=== PATIENT | female | born 1950 | race Caucasian/White ===

== ENCOUNTER → 2016-12-30 | Outpatient (CLI) | payer OTHER | LOC: FIMAGING 10:26 | PROVIDERS: ATTEND Physical Medicine & Rehabilitation Neuromuscular Medicine | DX: Z47.89 Encounter for other orthopedic aftercare (principal); Z98.1 Arthrodesis status; M43.16 Spondylolisthesis, lumbar region ==

== ENCOUNTER → 2017-01-18 | Outpatient (CLI) | payer OTHER | LOC: FIMAGING 11:22 | PROVIDERS: ATTEND Physical Medicine & Rehabilitation Neuromuscular Medicine | DX: M48.06 Spinal stenosis, lumbar region (principal); M99.73 Connective tissue and disc stenosis of intervertebral foramina of lumbar region; M12.88 Other specific arthropathies, not elsewhere classified, other specified site; Z98.1 Arthrodesis status ==

== ENCOUNTER → 2017-02-13 | Outpatient (CLI) | payer OTHER | LOC: FIMAGING 16:03 | PROVIDERS: ATTEND Physician Assistant Surgical | DX: M50.31 Other cervical disc degeneration, high cervical region (principal); M50.321 Other cervical disc degeneration at C4-C5 level; M50.322 Other cervical disc degeneration at C5-C6 level ==

== ENCOUNTER 2017-04-13 05:22 | Inpatient (IN) | payer OTHER ==
[2017-04-13] MEDS ORDERED: DEXAMETHASONE 10 MG/ML VIAL IVP ONE (05:45)
[2017-04-13] MEDS ORDERED: VANCOMYCIN HCL/NORMAL SALINE 250 ML IV ONE ×2 (05:45→18:30)
[2017-04-13] MEDS ORDERED: GABAPENTIN 300 MG CAP PO ONE (05:45)
[2017-04-13] MEDS ORDERED: ACETAMINOPHEN 500 MG TAB PO ONE (05:45)
[2017-04-13] MEDS ORDERED: LR 1,000 ML IV ONE (05:46)
[2017-04-13] MEDS ORDERED: LIDOCAINE 1% 2 ML INJ ID PRN (05:46)
--- NOTE | 2017-04-13 06:16 | PDHPUP ---
History & Physical Update H&P update statement: This history and physical update is based on an assessment of the patient which was completed after admission or registration (within 24 hours), but prior to the surgery/procedure. H&P update: H&P reviewed & patient examined, no change in patient's condition since H&P completed
[2017-04-13] MEDS ORDERED: ACETAMINOPHEN 500 MG TAB ONE (06:27)
[2017-04-13] MEDS ORDERED: BUPIVACAINE 0.25% 30 ML SDV ONE (06:42)
[2017-04-13] MEDS ORDERED: THROMBIN (BOVINE) 5,000 UNIT VIAL TP ONE ×2 (06:42→08:54)
[2017-04-13] MEDS ORDERED: BACITRACIN 50,000 UNITS/10 ML SYR IRR ONE (06:42)
[2017-04-13] MEDS ORDERED: CHLORHEXIDINE GLUC HIBICLENS 118 ML BTL TP ONE (06:42)
--- NOTE | 2017-04-13 07:01 | PDANEPAE ---
ANE History of Present Illness ACDF 3-6 ANE Past Medical History - Cardiovascular History Hx Hypertension: Yes Hx Arrhythmias: No Hx Chest Pain: No Hx Coronary Artery / Peripheral Vascular Disease: No Hx CHF / Valvular Disease: No Hx Palpitations: No Cardiovascular History Comment: INFREQUENT PVC'S - Pulmonary History Hx COPD: No Hx Asthma/Reactive Airway Disease: Yes Hx Recent Upper Respiratory Infection: No Hx Oxygen in Use at Home: No Hx Sleep Apnea: Yes Sleep Apnea Screening Result - Last Documented: Positive Pulmonary History Comment: ASTHMA SEASONAL TRIGGERS HAS PRN INHALER. MANUELA USES C -PAP. PE 05/2013 - Neurologic History Hx Cerebrovascular Accident: Yes Hx Seizures: No Neurologic History Comment: 01/2010 NO RESIDUAL EFFECT - Endocrine History Hx Diabetes: No - Renal History Hx Renal Disorders: No - Liver History Hx Hepatic Disorders: No - Neurological & Psychiatric Hx Hx Neurological and Psychiatric Disorders: Yes Neurological / Psychiatric History Comment: BIPOLAR. DEPRESSION - Cancer History Hx Cancer: No - Congenital Disorder History Hx Congenital Disorders: No - GI History Hx Gastrointestinal Disorders: Yes Gastrointestinal History Comment: GERD. COLONOSCOPY - Other Health History Other Health History: HAS SM INTESTINE POLYP. DJD - Chronic Pain History Chronic Pain: Yes (CERVICAL) - Surgical History Prior Surgeries: LUMBAR FUSION X2 2009 &2010. LT FOOT BUNIONECTOMY. LT CARPAL TUNNEL. BREAST BX. LAMINECTOMY 2001. HYSTERECTOMY/BLADDER SUSPENSION. PRECIOUS CATARACT/GLAUCOMA ECP 2010 ANE Review of Systems Review of systems is: negative - Exercise capacity Exercise capacity: >=4 METS METS (RN): 4 METS ANE Patient History - Allergies Allergies/Adverse Reactions: Cephalosporins Allergy (Severe, Verified 07/08/11 16:08) Rash Sulfa (Sulfonamide Antibiotics) Allergy (Severe, Verified 07/08/11 16:08) Hives alcohol [From Mastisol Adhesive] Allergy (Verified 04/06/17 11:01) gabapentin Allergy (Verified 04/06/17 11:00) HYPOMANIA gum mastic [From Mastisol Adhesive] Allergy (Verified 04/06/17 11:01) methyl salicylate [From Mastisol Adhesive] Allergy (Verified 04/06/17 11:01) morphine Allergy (Verified 04/06/17 10:59) Rash storax [From Mastisol Adhesive] Allergy (Verified 04/06/17 11:01) STERI STRIPS Allergy (Intermediate, Uncoded 07/08/11 16:09) MASTISOL ADHESIVES BLISTER, RASH - Home Medications Home Medications: ARIPiprazole [Abilify] 15 mg PO HS 04/06/17 [Last Taken 04/12/17 18:00] Calcium Carbonate/Vitamin D3 [CALCIUM 600 + VIT D TABLET] 1 each PO DAILY [Last Taken 04/06/17] Cholecalciferol Vit D3 [Vitamin D3 2000 units tab (OTC)] 2,000 units PO MWF [Last Taken 04/06/17] Levalbuterol Inhaler [Xopenex Hfa Inhaler (*)] 1 puffs IH BID PRN 04/06/17 [ Last Taken 02/16/17] Lisinopril/Hctz 10/12.5 mg [Zestoretic/Prinzide 10/12.5MG (*)] 1 ea PO DAILY [Last Taken 04/12/17 07:00] Methylphenidate HCl [Ritalin 20mg (*)] 20 mg PO BID 04/06/17 [Last Taken ] Prilosec Otc PRN 04/06/17 [Last Taken Unknown] Simvastatin [Zocor] 20 mg PO 04/06/17 [Last Taken 04/12/17] Tiotropium Br/Olodaterol HCl [Stiolto Respimat Inhal [place]] 1 puffs IH DAILY PRN 04/06/17 [Last Taken 02/16/17] Vitamin B Complex [B Complex] 1 each PO [facility] 04/06/17 [Last Taken Unknown] lamoTRIgine [LamICTAL 100 MG (*)] 300 mg PO 04/06/17 [Last Taken 04/12/17 07: 00] - NPO status NPO Status: no food or drink >8 hours NPO Since - Liquids (Date): 04/12/17 NPO Since - Liquids (Time): 22:00 NPO Since - Solids (Date): 04/12/17 NPO Since - Solids (Time): 18:00 - Anes Hx Anes Hx: no prior problems - Smoking Hx Smoking Status: Former smoker - Alcohol Use Alcohol Use: Rarely ANE Labs/Vital Signs - Vital Signs Blood Pressure: 125/73 Heart Rate: 67 Respiratory Rate: 20 O2 Sat (%): 98 Height: 153.67 cm Weight: 67.132 kg ANE Physical Exam - Airway Neck exam: FROM Mallampati Score: Class 1 Mouth exam: normal dental/mouth exam - Pulmonary Pulmonary: no respiratory distress - Cardiovascular Cardiovascular: regular rate and rhythym - ASA Status ASA Status: III ANE Anesthesia Plan Anesthesia Plan: general endotracheal anesthesia
[2017-04-13] MEDS ORDERED: fentaNYL 100 MCG/2 ML INJ ONE ×2 (07:06→10:04)
[2017-04-13] MEDS ORDERED: LIDOCAINE 2% 5 ML SDV ONE (07:06)
[2017-04-13] MEDS ORDERED: PROPOFOL 200 MG/20 ML VIAL ONE (07:07)
[2017-04-13] MEDS ORDERED: PROPOFOL/EMULSION 500 MG/50 ML BOTTLE IV ONE (07:07)
[2017-04-13] MEDS ORDERED: REMIFENTANIL HCL 1 MG VIAL ONE (07:07)
[2017-04-13] MEDS ORDERED: KETAMINE 100 MG/10 ML SYR ONE (07:14)
[2017-04-13] MEDS ORDERED: HYDROmorphONE/DILAUDID 2 MG/ML INJ ONE (09:21)
[2017-04-13] MEDS ORDERED: ONDANSETRON 4 MG/2 ML VIAL ONE (09:24)
[2017-04-13] MEDS ORDERED: LEVALBUTEROL INHALER 200 PUFFS/15 GM MDI IH PRN (09:49)
[2017-04-13] MEDS ORDERED: NON-FORMULARY NEW DRUG (Omeprazole [Prilosec 20 Mg] 20 MG) PO PRN (09:49)
[2017-04-13] MEDS ORDERED: OLODATEROL HCL IH PRN (09:49)
[2017-04-13] MEDS ORDERED: TIOTROPIUM BR IH PRN (09:49)
[2017-04-13] MEDS ORDERED: ONDANSETRON 4 MG/2 ML VIAL IVP PRN ×2 (09:51→09:57)
[2017-04-13] MEDS ORDERED: diphenhydrAMINE 25 MG CAP PO PRN (09:51)
[2017-04-13] MEDS ORDERED: BISACODYL 10 MG SUPP PR PRN (09:51)
[2017-04-13] MEDS ORDERED: MAGNESIUM HYDROXIDE 30 ML UDCUP PO PRN (09:51)
[2017-04-13] MEDS ORDERED: LACTULOSE 20 GM/30 ML UDCUP PO PRN (09:51)
[2017-04-13] MEDS ORDERED: HYDROmorphONE/DILAUDID 1 MG/ML SYR IVP PRN ×2 (09:57→09:59)
[2017-04-13] MEDS ORDERED: NALOXONE HCL 0.4 MG/ML INJ IVP PRN (09:57)
[2017-04-13] MEDS ORDERED: PROMETHAZINE HCL 25 MG/ML INJ IVP PRN ×2 (09:57→15:19)
[2017-04-13] MEDS ORDERED: LABETALOL HCL 50 MG/10 ML SYR IVP PRN (09:57)
--- NOTE | 2017-04-13 09:57 | SOAPPROG ---
SOAP Progress Note Assessment/Plan: Assessment: 66 yo F sp C3-6 ACDF Plan: stable PT/OT hard collar for 6 weeks please call with neuro changes 04/13/17 09:56 Subjective: + neck pain, no arm pain. Objective: Vital Signs Temp Pulse Resp BP Pulse Ox 36.6 C 67 20 125/73 H 98 04/13/17 06:01 04/13/17 07:01 04/13/17 07:01 04/13/17 07:01 04/13/17 07:01 awake, alert PERRL no facial droop 5/5 + light touch ICD10 Worksheet Patient Problems: Problems Problem Status Onset Fusion of spine of cervical region Acute - ICD10 Problem Qualifiers (1) Fusion of spine of cervical region
[2017-04-13] MEDS ORDERED: DIAZEPAM 10 MG/2 ML SYR IVP PRN (09:58)
--- NOTE | 2017-04-13 10:00 | POSTANESTH ---
Post Anesthetic Evaluation Cardiovascular Status: Normal, Stable Respiratory Status: Normal, Stable Level of Consciousness/Mental Status: Can Participate in Eval Pain Control: Adequate, Prn Tx Ordered Nausea/Vomiting Control: Adequate, Prn Tx Ordered Complications Possibly Related to Anesthesia: None Noted
[2017-04-13] MEDS ORDERED: DIAZEPAM 10 MG/2 ML SYR ONE (10:04)
[2017-04-13] MEDS: fentaNYL 100 MCG/2 ML INJ IVP PRN ×2 (10:12→10:30)
[2017-04-13] MEDS ORDERED: HYDROmorphONE/DILAUDID 1 MG/ML SYR ONE (10:48)
[2017-04-13] MEDS ORDERED: PANTOPRAZOLE SODIUM 40 MG TAB PO PRN (11:40)
--- NOTE | 2017-04-13 11:41 | GOP ---
[f rep st] OPERATIVE REPORT DATE OF OPERATION: 04/13/2017 SURGEON: Barry Elliott MD [employer]ER: GALINA Knapp. ANESTHESIA: General endotracheal. 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 Multilevel severe neural foraminal encroachment. Intractabl e pain and myelopathy. Failed conservative care. POSTOPERATIVE DIAGNOSIS: Multilevel cervical degenerative joint disease and instability, with progr essive cervical spondylitic myelopathy. Multilevel severe neural foraminal encroachment. Intractab le pain and myelopathy. Failed conservative care. PROCEDURE PERFORMED: C3-4, C4-5, and C5-6 complete anterior cervical diskectomy and arthrodesis wit h 3 structural PEEK interbody spacers, local autograft, and demineralized bone matrix. Partial C4 a nd C5 vertebral corpectomies for decompression of spinal canal. Placement of a LnK CastleLoc-P ante rior cervical plate from C3 through C6. Use of intraoperative microscopy and fluoroscopy. FINDINGS: ESTIMATED BLOOD LOSS: 150 cc. INDICATIONS: The patient is a 66-year-old woman with intractable neck pain, headaches, Lhermitte si gn, cervical instability on flexion-extension views, and severe neural foraminal encroachment. She presents now for a multilevel surgical cervical decompression and stabilization. DESCRIPTION OF PROCEDURE: After informed consent was obtained, the patient was taken to the operati ng room and placed in the supine position with the head in the halter retractor system. The anterio r cervical region was prepped and draped in a sterile fashion. After fluoroscopic localization of c orrect levels, the subcutaneous and intramuscular tissues were infiltrated with local anesthesia. A horizontal linear incision was then created at the level of the C4-5 interspace. This was carried through the platysmal layer using monopolar electrocautery and carried in the avascular plane betwee n the sternocleidomastoid and carotid sheath laterally and the strap muscles, trachea, and esophagus medially, down to the prevertebral fascia, which was carefully incised with Metzenbaum scissors. T he C3-4, C4-5, and C5-6 interspaces were identified and re-verified using intraoperative fluoroscopy . The large osteophytes were carefully removed and harvested for local autograft. The distraction pins were then serially inserted and a slight amount of distraction created across each interspace, during which time complete diskectomies were performed at C3-4, C4-5, and C5-6, with preparation of the endplates and removal of the posterior longitudinal ligament at each level. There were large po steriorly protruding osteophytes that required an extensive amount of decompressing including drilli ng and use of the Kerrison rongeurs. Because the superior and inferior endplates of C4 and C5 were extensively decompressed and drilled, it was necessary to remove approximately 50% of those vertebra l bodies for partial C4 and C5 vertebral corpectomies in order to adequately decompress the canal an d neural foramen. The patient was somewhat oozy and it seemed like she was on aspirin or something because all of her tissues tended to bleed slightly more than normal. This was never dangerous or e xcessive, but took more time to obtain meticulous hemostasis, which was eventually done at each leve l. Following adequate decompression, the remaining endplates were carefully prepared and appropriat sirisha-sized 10, 11, and 10 mm structural PEEK interbody spacers were packed with local autograft in [facility], along with demineralized bone matrix, and placed in the interspaces at the C3-4, C4-5, and C5-6 levels under fluoroscopic image guidance. The distraction was removed serially and an appropr iately sized LnK CastleLoc-P anterior cervical plate was then placed and secured from C3 through C6 with self-drilling screws. Following re-verification of good positioning of the plate screws and in terbody spacers using biplanar fluoroscopy, the locking mechanisms were engaged. A drain was placed . The subcutaneous and intramuscular tissues were re-infiltrated with local anesthesia and the woun d was closed in layered fashion using interrupted Vicryl sutures followed by Steri-Strips on the ski n. COMPLICATIONS: None. DISPOSITION: The patient was extubated and transported to the recovery room in stable condition. /[id number]/MODL
[2017-04-13] MEDS: NS 1,000 ML IV SCH (11:45)
[2017-04-13] MEDS: oxyCODONE IR 5 MG TAB PO PRN ×2 (11:45→19:44)
[2017-04-13] MEDS: ONDANSETRON DISINTEGRATING 4 MG TAB PO PRN (11:56)
[2017-04-13] MEDS: ACETAMINOPHEN 500 MG TAB PO SCH ×2 (15:34→21:26)
[2017-04-13] MEDS: POLYETHYLENE GLYCOL 3350 17 GM PKT PO SCH ×2 (15:35→21:26)
[2017-04-13] MEDS: ARIPiprazole 5 MG TAB PO SCH (19:45)
[2017-04-13] MEDS: FAMOTIDINE 20 MG TAB PO SCH (19:45)
[2017-04-13] MEDS: SENNOSIDES/DOCUSATE SODIUM TAB PO SCH (19:45)
[2017-04-13] MEDS: ATORVASTATIN CALCIUM 10 MG TAB PO SCH (19:46)
[2017-04-13] MEDS ORDERED: lamoTRIgine 100 MG TAB PO SCH (21:00)
[2017-04-13] MEDS ORDERED: NON-FORMULARY NEW DRUG (Simvastatin [Zocor] 20 MG) PO SCH (21:00)
[2017-04-13] MEDS ORDERED: ARIPIPRAZOLE 15 MG PO SCH (21:00)
[2017-04-13] MEDS: METHOCARBAMOL 750 MG TAB PO PRN (21:28)
[2017-04-14] MEDS: NS 1,000 ML IV SCH (00:06)
[2017-04-14] MEDS: oxyCODONE IR 5 MG TAB PO PRN ×5 (04:00→22:21)
[2017-04-14] MEDS: METHOCARBAMOL 750 MG TAB PO PRN ×4 (05:38→22:21)
[2017-04-14] MEDS: ACETAMINOPHEN 500 MG TAB PO SCH ×3 (05:38→22:21)
[2017-04-14] MEDS ORDERED: CHOLECALCIFEROL VIT D3 2,000 UNITS TAB/CAP PO SCH (08:00)
[2017-04-14] MEDS: POLYETHYLENE GLYCOL 3350 17 GM PKT PO SCH ×3 (08:35→22:21)
[2017-04-14] MEDS: SENNOSIDES/DOCUSATE SODIUM TAB PO SCH ×2 (08:35→20:32)
[2017-04-14] MEDS: FAMOTIDINE 20 MG TAB PO SCH ×2 (08:36→20:32)
[2017-04-14] MEDS: LISINOPRIL/HCTZ 10/12.5 MG 1 EA TAB PO SCH (08:37)
[2017-04-14] MEDS: CALCIUM CARB W/VIT D 500 MG TAB PO SCH ×2 (08:38→08:50)
[2017-04-14] MEDS: lamoTRIgine 100 MG TAB PO SCH (08:40)
--- NOTE | 2017-04-14 08:45 | SOAPPROG ---
SOAP Progress Note Assessment/Plan: Assessment: POD #1 sp C3-6 ACDF Doing ok. Expected post op dysphagia ARMSTRONG improved, left arm pain improved Plan: PT/OT/ST as tolerated soft diet Continue MYAH drain and hard collar Needs cervical xrays today . Subjective: awake, alert, doing ok this AM with resolution of ARMSTRONG since surgery. LEft arm feels better as well. Has expected dysphagia, tolerating yogurt this AM. Objective: Vital Signs Temp Pulse Resp BP Pulse Ox 37.0 C 82 18 127/84 H 99 04/14/17 04:00 04/14/17 04:00 04/14/17 04:00 04/14/17 08:37 04/14/17 04:00 04/13/17 04/14/17 04/15/17 05:59 05:59 05:59 Intake Total 718 Output Total 1345 Balance -627 Dressing: CDI MYAH: 95ml NEuro: AVILES, Sens +LT equal strength ICD10 Worksheet Patient Problems: Problems Problem Status Onset Fusion of spine of cervical region Acute
[2017-04-14] MEDS ORDERED: NON-FORMULARY NEW DRUG (Calcium Carbonate/Vitamin D3 [Calcium 600 + Vit D Tablet] 1 EACH) PO SCH (09:00)
[2017-04-14] MEDS: ONDANSETRON DISINTEGRATING 4 MG TAB PO PRN (13:28)
[2017-04-14] MEDS: ATORVASTATIN CALCIUM 10 MG TAB PO SCH (20:31)
[2017-04-14] MEDS: ARIPiprazole 5 MG TAB PO SCH (20:32)
[2017-04-15] MEDS: oxyCODONE IR 5 MG TAB PO PRN ×5 (04:16→21:40)
[2017-04-15] MEDS: METHOCARBAMOL 750 MG TAB PO PRN ×3 (04:16→21:40)
[2017-04-15] MEDS: ACETAMINOPHEN 500 MG TAB PO SCH ×3 (05:14→21:39)
[2017-04-15] MEDS: FAMOTIDINE 20 MG TAB PO SCH ×2 (07:53→21:40)
[2017-04-15] MEDS: lamoTRIgine 100 MG TAB PO SCH (07:53)
[2017-04-15] MEDS: SENNOSIDES/DOCUSATE SODIUM TAB PO SCH ×2 (07:53→21:40)
[2017-04-15] MEDS: CALCIUM CARB W/VIT D 500 MG TAB PO SCH (07:54)
[2017-04-15] MEDS: LISINOPRIL/HCTZ 10/12.5 MG 1 EA TAB PO SCH (07:54)
[2017-04-15] MEDS: POLYETHYLENE GLYCOL 3350 17 GM PKT PO SCH ×3 (07:54→21:39)
--- NOTE | 2017-04-15 08:51 | SOAPPROG ---
SOAP Progress Note Assessment/Plan: Assessment: POD #2 sp C3-6 ACDF Doing ok. Expected post op dysphagia left arm pain improved Plan: PT/OT/ST as tolerated soft diet, thick liquids hard collar d/c MYAH drain today post-op xrays show intact hardware with excellent alignment likely d/c home tomorrow if swallowing improved, patient concerned about being able to take pills 04/15/17 08:50 04/15/17 08:53 Subjective: c/o difficulty swallowing Objective: Vital Signs Temp Pulse Resp BP Pulse Ox 36.7 C 91 16 145/85 H 94 04/15/17 08:00 04/15/17 08:00 04/15/17 08:00 04/15/17 08:00 04/15/17 08:00 04/14/17 04/15/17 04/16/17 05:59 05:59 05:59 Intake Total 718 590 Output Total 7621 2635 Balance -627 -2044 AAOx3, full strength and sensation, voice somewhat hoarse/raspy, wounds c/d/i - Pending Discharge Pending Discharge Within 24 Hours: Yes Pending Discharge Within 48 Hours: Yes Pending Discharge Date: 04/16/17 Pending Discharge Time: 11:00 ICD10 Worksheet Patient Problems: Problems Problem Status Onset Fusion of spine of cervical region Acute
[2017-04-15] MEDS: ONDANSETRON DISINTEGRATING 4 MG TAB PO PRN (15:58)
[2017-04-15 16:27] VITALS: O2SAT 95
[2017-04-15] MEDS: ARIPiprazole 5 MG TAB PO SCH (21:39)
[2017-04-15] MEDS: ATORVASTATIN CALCIUM 10 MG TAB PO SCH (21:39)
[2017-04-15 22:22] VITALS: RESP 16; TEMP 98.2
[2017-04-16] MEDS: oxyCODONE IR 5 MG TAB PO PRN ×2 (05:10→09:00)
[2017-04-16] MEDS: METHOCARBAMOL 750 MG TAB PO PRN ×3 (05:11→13:34)
[2017-04-16] MEDS: ACETAMINOPHEN 500 MG TAB PO SCH ×2 (05:11→13:34)
[2017-04-16 08:30] VITALS: BP 121/81; PULSE 83
--- NOTE | 2017-04-16 08:33 | SOAPPROG ---
SOAP Progress Note Assessment/Plan: Assessment: POD #3 sp C3-6 ACDF Doing ok. Expected post op dysphagia - improving left arm pain improved Plan: PT/OT/ST as tolerated soft diet, thick liquids hard collar post-op xrays show intact hardware with excellent alignment d/c home today 04/15/17 08:50 04/15/17 08:53 04/16/17 08:32 Subjective: swallowing improving Objective: Vital Signs Temp Pulse Resp BP Pulse Ox 36.8 C 83 16 121/81 H 95 04/16/17 08:00 04/16/17 08:00 04/16/17 08:00 04/16/17 08:00 04/16/17 08:00 04/15/17 04/16/17 04/17/17 05:59 05:59 05:59 Intake Total 590 400 Output Total 2635 500 Balance -2045 -100 AAOx3, full strength and sensation, no drift, wound c/d/i - Pending Discharge Pending Discharge Within 24 Hours: Yes Pending Discharge Date: 04/17/17 Pending Discharge Time: 11:00 ICD10 Worksheet Patient Problems: Problems Problem Status Onset Fusion of spine of cervical region Acute
--- NOTE | 2017-04-16 08:40 | PDIAF ---
- Diagnosis Code Status: Full Code - Medication Management Discharge Medications: Medications to Continue on Transfer ARIPiprazole [Abilify] 15 mg PO HS 04/06/17 [Last Taken 04/12/17 18:00] Calcium Carbonate/Vitamin D3 [CALCIUM 600 + VIT D TABLET] 1 each PO DAILY [Last Taken 04/06/17] Cholecalciferol Vit D3 [Vitamin D3 2000 units tab (OTC)] 2,000 units PO MWF [Last Taken 04/06/17] Levalbuterol Inhaler [Xopenex Hfa Inhaler (*)] 1 puffs IH BID PRN 04/06/17 [ Last Taken 02/16/17] Lisinopril/Hctz 10/12.5 mg [Zestoretic/Prinzide 10/12.5MG (*)] 1 ea PO DAILY [Last Taken 04/12/17 07:00] Methylphenidate HCl [Ritalin 20mg (*)] 20 mg PO BID 04/06/17 [Last Taken ] Omeprazole [Prilosec 20 mg] 20 mg PO DAILY PRN 04/06/17 [Last Taken Unknown] Simvastatin [Zocor] 20 mg PO HS 04/06/17 [Last Taken 04/12/17] Tiotropium Br/Olodaterol HCl [Stiolto Respimat Inhal [place]] 1 puffs IH DAILY PRN 04/06/17 [Last Taken 02/16/17] Vitamin B Complex [B Complex] 1 each PO MWF 04/06/17 [Last Taken Unknown] lamoTRIgine [LamICTAL 100 MG (*)] 300 mg PO HS 04/06/17 [Last Taken 04/12/17 07: 00] Methocarbamol [Robaxin 750 mg (*)] 750 mg PO QID PRN #60 tab 04/16/17 [Last Taken Unknown] oxyCODONE IR [Oxycodone Ir (*)] 5 - 10 mg PO Q4HRS PRN #60 tab 04/16/17 [Last Taken Unknown] Discharge Medications: Refer to the Discharge Home Medication list for PRN reason. - Orders Services needed: Home Care, Physical Therapy, Occupational Therapy, Speech Language Pathologist Home Care Face to Face: I certify that this patient was under my care and that I had the required [id number] encounter meeting the encounter requirements on the discharge day. My findings support the fact that the patient is homebound as defined in CMS Chapter 7 Medicare Benefits Manual 30.1.1, The condition of the patient is such that there exists a normal inability to leave home and consequently, leaving home would require a considerable and taxing effort. Diet Recommendation: no restrictions on diet, other Diet Texture: Dysphagia 2 - Mechanically Altered - Chopped, Ground, [place] Thick Liquids, Meds Whole w/Liquids, Meds Whole in Puree - Follow Up Care Current Providers and Referrals: Yana Birmingham, ASSISTANT TENNIS COACH [Primary Care Provider] -
[2017-04-16] MEDS: LISINOPRIL/HCTZ 10/12.5 MG 1 EA TAB PO SCH (08:59)
[2017-04-16] MEDS: FAMOTIDINE 20 MG TAB PO SCH (08:59)
[2017-04-16] MEDS: SENNOSIDES/DOCUSATE SODIUM TAB PO SCH (08:59)
[2017-04-16] MEDS ORDERED: ENOXAPARIN 40 MG/0.4 ML SYR SC SCH (09:00)
[2017-04-16] MEDS: CALCIUM CARB W/VIT D 500 MG TAB PO SCH (09:00)
[2017-04-16] MEDS: lamoTRIgine 100 MG TAB PO SCH (09:00)
[2017-04-16] MEDS: POLYETHYLENE GLYCOL 3350 17 GM PKT PO SCH (09:04)
== END 2017-04-16 14:08 | disposition home health service (06) | DRG 473 ==
LOC: F3N 05:22
PROVIDERS: ADMIT Neurological Surgery; ATTEND Neurological Surgery
PROC: 0RT30ZZ Resection of Cervical Vertebral Disc, Open Approach (ICD-10-PCS; principal; 2017-04-13 07:15)
PROC: 0RG20A0 Fusion of 2 or more Cervical Vertebral Joints with Interbody Fusion Device, Anterior Approach, Anterior Column, Open Approach (ICD-10-PCS; principal; 2017-04-13 07:15)
PROC: 00NW0ZZ Release Cervical Spinal Cord, Open Approach (ICD-10-PCS; principal; 2017-04-13 07:15)
DX: M47.12 Other spondylosis with myelopathy, cervical region (principal); M50.30 Other cervical disc degeneration, unspecified cervical region; I10 Essential (primary) hypertension; J45.909 Unspecified asthma, uncomplicated; K21.9 Gastro-esophageal reflux disease without esophagitis; Z98.1 Arthrodesis status
CPT/HCPCS: 92610-GN; 97116-GP; 97161-GP; 97165-GO; C1713; G8978-GP-CJ; G8979-GP-CI; G8980-GP-CI; G8987-GO-CI; G8988-GO-CI; G8989-GO-CI; G8996-GN-CK; G8997-GN-CI; J0171; J1100; J1170; J1650; J2405; J2550; J2704; J3010; J3370

== ENCOUNTER → 2017-07-17 | Outpatient (CLI) | payer OTHER | LOC: FIMAGING 08:58 | PROVIDERS: ATTEND Physician Assistant Surgical | DX: Z47.89 Encounter for other orthopedic aftercare (principal); Z98.1 Arthrodesis status ==

== ENCOUNTER → 2017-10-02 | Outpatient (CLI) | payer OTHER | LOC: FIMAGING 08:21 | PROVIDERS: ATTEND Physician Assistant Surgical | DX: Z09 Encounter for follow-up examination after completed treatment for conditions other than malignant neoplasm (principal); Z98.1 Arthrodesis status ==

== ENCOUNTER → 2018-04-05 | Outpatient (CLI) | payer OTHER | LOC: FIMAGING 10:35 | PROVIDERS: ATTEND Physician Assistant Surgical | DX: Z09 Encounter for follow-up examination after completed treatment for conditions other than malignant neoplasm (principal) ==